=== PATIENT | female | born 1945 | race Caucasian/White ===

== ENCOUNTER 2021-02-03 14:27 | Observation (INO) ==
[2021-02-03 16:06] LABS: Barbiturates Screen,Urine Negative (Negative); Benzodiazepines Screen,Urine Positive (Negative); Cannabinoid Screen,Urine Negative (Negative); Opiate Screen,Urine Negative (Negative); Phencyclidine Screen,Urine Negative (Negative)
[2021-02-03 16:18] LABS: Basophils # 0.1 10*3/uL (0.0-0.2); Basophils % 1.2 % (0.0-0.8); Eosinophils # 0.1 10*3/uL (0.0-0.87); Eosinophils % 1.7 % (0.00-10.9); Hematocrit 39.5 VOL% (35.7-47.0); Hemoglobin 13.6 GM/DL (12.0-16.0); Lymphocytes % 39.2 % (21.3-54.2); Mean Corpuscular HGB Conc 34.4 GM/DL (32-36); Mean Corpuscular Volume 89.2 FL (87-102); Monocytes % 11.4 % (1.7-12.7); Neutrophils % 46.5 % (38.7-73.9); Platelet Count 282 T/CUMM (130-400); Red Blood Count 4.43 MC/CUMM (3.8-5.5); Red Cell Distribution Width 14.8 % (9.3-17.3); White Blood Count 5.2 T/CUMM (4-12)
[2021-02-03 16:24] LABS: Bilirubin,Urine Negative (Negative); Blood, Urine Negative (Negative); Glucose,Urine (UA) Negative (Negative); Ketones,Urine 5 mg/dL (Negative); Nitrite,Urine Negative (Negative); Protein,Urine Negative; Urine Appearance CLEAR (Clear); Urine Color Straw (Yellow); Urine Specific Gravity 1.005 (1.001-1.035); Urine Urobilinogen < 2.0 EU/DL (0.2-1.0)
[2021-02-03 16:36] LABS: Albumin 3.5 G/DL (3.4-5.0); Bilirubin,Total 0.5 MG/DL (0.2-1.0); Calcium 9.4 MG/DL (8.5-10.1); Osmolality,Calculated 277.4 MOS/KG (273-304); PT Patient Result 10.5 SECS (9.8-11.9); Partial Thromboplastin Time 21.7 SECS (23.9-33.8); Potassium 4.3 MMOL/L (3.5-5.1); Thyroid Stimulating Hormone 0.026 uIU/ml (0.358-3.74); Total Protein 7.3 G/DL (6.4-8.2)
[2021-02-03] MEDS ORDERED: LABETALOL 20 MG/4 ML SYRINGE IV PRN (17:38)
[2021-02-03] MEDS ORDERED: CLORAZEPATE 7.5 MG TABLET PO PRN (17:46)
[2021-02-03 18:10] LABS: Risk Ratio 2.22
[2021-02-03] MEDS ORDERED: ENOXAPARIN 40 MG/0.4 ML SYRINGE SUBCUT SCH (18:30)
[2021-02-04] MEDS ORDERED: THYROID 60 MG TABLET PO SCH (09:00)
[2021-02-04] MEDS ORDERED: SELENIUM 200 MCG TABLET PO SCH (09:00)
[2021-02-04] MEDS ORDERED: CHOLECALCIFEROL 5,000 UNIT TABLET PO SCH (09:00)
[2021-02-04] MEDS ORDERED: ZINC GLUCONATE 50 MG TABLET PO SCH (09:00)
[2021-02-04] MEDS ORDERED: ASPIRIN 325 MG TABLET PO SCH (09:00)
[2021-02-04 11:42] VITALS: BP 149/86
== END 2021-02-04 14:55 | disposition home health service (06) ==
LOC: N.EDINP 14:27 → N.ED 14:27 → SUATTDRO 16:47 → N.4E 18:52
PROVIDERS: ADMIT Internal Medicine; ATTEND Family Medicine